=== PATIENT | female | born 1990 | race American Indian/Alaskan Native ===

== ENCOUNTER 2018-06-13 22:15 | Emergency (ER) | payer OTHER ==
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
[2018-06-14 01:28] VITALS: BP 120/64
== END 2018-06-14 01:30 | disposition home or self-care (01) ==
LOC: ED 22:15
DX: S06.9X9A Unspecified intracranial injury with loss of consciousness of unspecified duration, initial encounter (principal); J45.909 Unspecified asthma, uncomplicated; E66.9 Obesity, unspecified; Z68.41 Body mass index [BMI] 40.0-44.9, adult; Z88.0 Allergy status to penicillin; Z87.891 Personal history of nicotine dependence; V49.59XA Passenger injured in collision with other motor vehicles in traffic accident, initial encounter; Y93.89 Activity, other specified; Y92.488 Other paved roadways as the place of occurrence of the external cause; Y99.8 Other external cause status
CPT/HCPCS: 99282

== ENCOUNTER 2019-10-10 13:27 | Emergency (ER) | payer OTHER | END 2019-10-10 14:05 | disposition left against medical advice (07) | LOC: ED 13:27 | DX: T76.21XA Adult sexual abuse, suspected, initial encounter (principal); Z53.21 Procedure and treatment not carried out due to patient leaving prior to being seen by health care provider ==